=== PATIENT | male | born 1965 | race Caucasian/White ===

== ENCOUNTER 2020-06-17 11:46 | Emergency (ER) | payer MEDICAID, OTHER ==
[~2020-06-17] VITALS: Ht 165.1 cm; Wt 71.0 kg
[2020-06-17] MEDS ORDERED: MORPHINE SULFATE 4 MG/ML CPJ (NOT FOR IM USE) IV STA (12:25)
[2020-06-17] MEDS ORDERED: SODIUM CHLORIDE 0.9% 1,000 ML IV ONE ×2 (12:25→13:30)
[2020-06-17] MEDS ORDERED: ONDANSETRON HCL 4MG/2ML INJ IV STA (12:25)
[2020-06-17] MEDS ORDERED: PIPERACILLIN/TAZOBACTAM 3.375GM/50ML PREMIX IV ONE (12:45)
[2020-06-17] MEDS ORDERED: PIPERACILLIN/TAZ 3.375G PREMIX 50 ML IV SCH (12:45)
[2020-06-17] MEDS ORDERED: VANCOMYCIN 1 G PREMIX 200 ML IV SCH (12:45)
[2020-06-17] MEDS ORDERED: TETANUS, DIPHTHERIA, PERTUSSIS VAC/PF 0.5ML (>7YR OLD) IM ONE (12:45)
[2020-06-17 12:50] LABS: BASOPHILS % 0.4 % (0.0-2.0); EOSINOPHILS % 0.1 % (0.0-5.0); HEMATOCRIT. 47.5 % (42.0-52.0); HEMOGLOBIN. 16.4 g/dL (14.0-18.0); LYMPHOCYTES % 13.5 % (20.0-50.0); MEAN CORPUSCULAR HEMOGLOBIN 32.1 pg (28.0-32.0); MEAN CORPUSCULAR VOLUME 93.3 fL (80.0-94.0); MEAN PLATELET VOLUME 8.3 fl (7.4-10.4); MONOCYTES % 9.7 % (2.0-8.0); NEUTROPHILS % 76.3 % (40.0-76.0); PLATELET 350 x1000/uL (130-400); RED BLOOD CELL COUNT 5.09 mill/uL (4.7-6.1)
[2020-06-17 12:55] LABS: CHLORIDE 107 mEq/L (98-107)
[2020-06-17 12:59] LABS: INR 1.1; PROTHROMBIN TIME 11.4 sec (9.6-11.0)
[2020-06-17] MEDS ORDERED: KETAMINE HCL 50 MG/ML 10ML IV ONE (13:30)
[2020-06-17] MEDS ORDERED: ONDANSETRON HCL 4MG/2ML INJ IV ONE (13:30)
[2020-06-17] MEDS ORDERED: LEVETIRACETAM 500MG PREMIX 100 ML IV ONE (14:00)
[2020-06-17] MEDS ORDERED: FENTANYL CITRATE/PF 50MCG/ML 2ML VIAL IV ONE (14:00)
[2020-06-17 15:09] VITALS: BP 137/91
== END 2020-06-17 15:10 | disposition short-term general hospital (02) ==
LOC: ER 11:46 → EDBEDREQ 12:30 → ER 15:10 → CANBEDREQ 17:21
DX: S82.892B Other fracture of left lower leg, initial encounter for open fracture type I or II (principal); Y08.89XA Assault by other specified means, initial encounter; Y93.89 Activity, other specified; Y92.89 Other specified places as the place of occurrence of the external cause; Y99.8 Other external cause status
CPT/HCPCS: 36415; 70450; 71045; 73590; 73600; 73620; 80053; 85025; 85610; 86850; 86900; 86901; 86945; 90471; 90715; 93005; 96365; 96375; 96376; 99285; J1953; J2270; J2405; J2543; J3010; J3370; J3490; J7030; P9034